=== PATIENT | female | born 1960 | race African-American/Black ===

== ENCOUNTER → 2017-11-07 | Outpatient (CLI) | payer BC ==
[~2017-11-07] MED LIST: ALLO100T PO; AMOX500T PO; AZIL40TA2 PO; BP PILL; CALC0.25 PO; CHOL5000 PO; COUM5TAB PO; CYAN1SUB SL; FISH1200 PO; MULTTAB67 PO; SPIR25TA PO; XARE20TA PO; [UNRECOGNIZED DRUG - CODE]
[2017-11-07 13:01] LABS: AUTOMATED NEUTROPHIL # 2.6 TH/MM3 (1.8-7.7); BASOPHIL % 0.8 % (0.0-2.0); EOSINOPHIL # 0.1 TH/MM3 (0-0.4); EOSINOPHIL % 2.3 % (0.0-4.0); HEMATOCRIT 37.6 % (35.0-46.0); HEMOGLOBIN 12.6 GM/DL (11.6-15.3); LYMPH % 26.5 % (9.0-44.0); LYMPHOCYTE # 1.2 TH/MM3 (1.0-4.8); MEAN CELL VOLUME 90.1 FL (80.0-100.0); MEAN CORPUSCULAR HEMOGLOBIN 30.2 PG (27.0-34.0); MEAN CORPUSCULAR HGB CONC 33.5 % (32.0-36.0); MEAN PLATELET VOLUME 9.4 FL (7.0-11.0); MONO % 12.3 % (0.0-8.0); MONOCYTE # 0.5 TH/MM3 (0-0.9); NEUT % 58.1 % (16.0-70.0); PLATELET COUNT 186 TH/MM3 (150-450); RED BLOOD COUNT 4.18 MIL/MM3 (4.00-5.30); RED CELL DISTRIBUTION WIDTH 14.7 % (11.6-17.2); WHITE BLOOD COUNT 4.5 TH/MM3 (4.0-11.0)
--- NOTE | 2017-11-07 13:07 | RADRPT ---
EXAM DATE/TIME: 11/07/2017 12:55 [place] COMPARISON: No previous studies available for comparison. INDICATIONS : Evaluate for pneumonia, pneumothorax, or communicable disease. Pre op for hysterectomy. MEDICAL HISTORY : Atrial fibrillation. SURGICAL HISTORY : None. ENCOUNTER: Initial ACUITY: 1 day PAIN SCORE: 0/10 LOCATION: Bilateral chest FINDINGS: The heart is enlarged. There is no overt congestive failure. The lungs are clear. The bony structures are grossly intact. CONCLUSION: 1. Mild cardiomegaly. No overt congestive failure. Rahul Messina MD on November 07, 2017 at 13:05 Board Certified Radiologist. This report was verified electronically.
[2017-11-07 13:09] LABS: INTERNATIONAL NORMALIZED RATIO 1.3 RATIO
[2017-11-07 13:24] LABS: BICARBONATE 31.1 MEQ/L (21.0-32.0); BLOOD UREA NITROGEN 30 MG/DL (7-18); CALCIUM 10.2 MG/DL (8.5-10.1); CHLORIDE 107 MEQ/L (98-107); CREATININE 1.52 MG/DL (0.50-1.00); GLOMERULAR FILTRATION RATE 43 ML/MIN (>89); GLUCOSE,FASTING 87 MG/DL (74-99); SODIUM (NA) 143 MEQ/L (136-145)
[2017-11-07 13:25] LABS: ALT (GPT) 18 U/L (10-53); AST (GOT) 17 U/L (15-37)
[2017-11-07 13:28] LABS: ALKALINE PHOSPHATASE 64 U/L (45-117); TOTAL BILIRUBIN ADULT 0.7 MG/DL (0.2-1.0); TOTAL PROTEIN 7.7 GM/DL (6.4-8.2)
--- NOTE | 2017-11-08 15:39 | EKG ---
Date Performed: 11/07/2017 Time Performed: 12:00:00 PTAGE: 57 years EKG: ATRIAL FIBRILLATION ST DEVIATION AND MODERATE T-WAVE ABNORMALITY, CONSIDER LATERAL ISCHEMIA ST DEVIATION AND MODERATE T-WAVE ABNORMALITY, CONSIDER INFERIOR ISCHEMIA ABNORMAL ECG Compared to PREVIOUS TRACING , patient no longer has criteria for a left ventricular hypertrophy. The re has been a marked improvement of the ST-T wave changes and essentially resolution of the previous denoted marked ST segment depression. Clinical correlation will be important to assess the serial levon nge. PREVIOUS TRACIN08/27/2003 17.38 DOCTOR: Lor Fisher Interpretating Date/Time 11/08/2017 15:39:47
== END ==
LOC: CPRE 11:31
PROVIDERS: ATTEND Obstetrics & Gynecology Gynecologic Oncology
DX: Z01.810 Encounter for preprocedural cardiovascular examination (principal); Z01.812 Encounter for preprocedural laboratory examination; Z01.818 Encounter for other preprocedural examination; R19.09 Other intra-abdominal and pelvic swelling, mass and lump
CPT/HCPCS: 36415; 71046; 80053; 85025; 85610; 85730; 86304; 93005

== ENCOUNTER 2017-11-25 05:09 | Observation (INO) | payer BC ==
[2017-11-25] VITALS (9 sets, daily range): BP systolic 113–127; BP diastolic 71–81; PULSE 66–92; RESP 16–20; TEMP 97.5–98; O2SAT 96–98
[~2017-11-25] VITALS: Ht 170.2 cm; Wt 98.8 kg
[~2017-11-25 05:09] MED LIST changes: -AMOX500T PO; -BP PILL; -COUM5TAB PO; -[UNRECOGNIZED DRUG - CODE]
[2017-11-25] MEDS ORDERED: CHLORHEXIDINE GLUCONATE 2 % 1 PACK (2 CLOTHS) TOPICAL PRN (05:45)
[2017-11-25] MEDS ORDERED: ceFAZolin 2 GM PREMIX 50 ML IV SCH (05:45)
[2017-11-25] MEDS ORDERED: METOPROLOL TARTRATE 25 MG TAB PO PRN (05:45)
[2017-11-25] MEDS ORDERED: LACTATED RINGER'S 1000 ML IV PRN (05:45)
[2017-11-25] MEDS ORDERED: SODIUM CHLORID 0.9% 500 ML IV PRN (05:45)
[2017-11-25] MEDS ORDERED: POVIDONE IODINE 5% (ANTISEPSIS KIT) 4 APPLICATIONS EACH NARE PRN (05:45)
[2017-11-25] MEDS ORDERED: ACETAMINOPHEN 1000 MG/100 ML 100 ML IV ONE (07:20)
[2017-11-25] MEDS ORDERED: HEPARIN SODIUM - SQ 10,000 UNITS/ML VIAL SQ SCH (08:00)
[2017-11-25] MEDS ORDERED: LIDOCAINE 1%/EPINEPHrine 1:100,000 SOLN 20 ML VIAL INFIL ONE (10:30)
[2017-11-25] MEDS ORDERED: METHYLENE BLUE 10 MG/ML VIAL OTHER ONE (10:34)
[2017-11-25] MEDS ORDERED: ceFAZolin INJ 1,000 MG VIAL IV ONE ×2 (11:19→12:00)
[2017-11-25] MEDS ORDERED: SODIUM CHLORIDE 0.9% FLUSH 10 ML FLUSH IV FLUSH PRN (11:45)
[2017-11-25] MEDS ORDERED: diphenhydrAMINE HCL 25 MG CAP PO PRN (11:45)
[2017-11-25] MEDS ORDERED: ONDANSETRON HCL 4 MG/2 ML VIAL IVP PRN (11:45)
[2017-11-25] MEDS ORDERED: oxyCODONE/ACETAMINOPHEN 5 MG/325 MG TAB PO PRN (11:45)
[2017-11-25] MEDS ORDERED: LABETALOL HCL 100 MG/20 ML VIAL IV ONE (12:00)
[2017-11-25] MEDS ORDERED: LIDOCAINE HCL 1% PF 5 ML SYRINGE OTHER ONE (12:00)
[2017-11-25] MEDS ORDERED: GLYCOPYRROLATE 1 MG/5 ML SYRINGE IV PUSH ONE (12:00)
[2017-11-25] MEDS ORDERED: ONDANSETRON HCL 4 MG/2 ML VIAL IV ONE (12:00)
[2017-11-25] MEDS ORDERED: VECURONIUM BROMIDE 20 MG VIAL IV ONE (12:00)
[2017-11-25] MEDS ORDERED: ROCURONIUM INJ 50 MG/5 ML SYRINGE IV PUSH ONE (12:00)
[2017-11-25] MEDS ORDERED: NEOSTIGMINE 5 MG/5 ML SYRINGE IV PUSH ONE (12:00)
[2017-11-25] MEDS ORDERED: PROPOFOL 200 MG/20 ML AMP IV ONE (12:00)
[2017-11-25] MEDS ORDERED: METOPROLOL TARTRATE 5 MG/5 ML VIAL IV ONE (12:00)
[2017-11-25] MEDS ORDERED: NORMOSOL R INJ 1,000 ML IV ONE (12:00)
[2017-11-25] MEDS ORDERED: ESMOLOL HCL 100 MG/10 ML VIAL IV ONE (12:00)
[2017-11-25] MEDS ORDERED: PHENYLEPH/NS 1000 MCG/10 ML SYR IV ONE (12:00)
[2017-11-25] MEDS ORDERED: SUGAMMADEX SODIUM 200 MG/2 ML VIAL IV PUSH ONE (12:00)
[2017-11-25] MEDS ORDERED: DO NOT ADM ANY ANTICOAGULANT DRUGS PRN (12:15)
[2017-11-25] MEDS: D5-1/2 NS + KCL 20 MEQ INJ 1,000 ML IV SCH ×2 (12:40→20:57)
[2017-11-25] MEDS ORDERED: *morphine SULFATE 4 MG/ML PERIprocedure ONLY ONE (13:01)
[2017-11-25 13:23] LABS: BICARBONATE 25.8 MEQ/L (21.0-32.0); CALCIUM 8.2 MG/DL (8.5-10.1); CREATININE 1.67 MG/DL (0.50-1.00)
[2017-11-25] MEDS ORDERED: *morphine SULFATE 8 MG/ML PERIprocedure ONLY ONE ×2 (13:31→14:46)
[2017-11-25] MEDS ORDERED: LORazepam 0.5 MG TAB PO PRN (14:00)
[2017-11-25] MEDS: KETOROLAC TROMETHAMINE 30 MG/ML (IVP) VIAL IVP SCH ×2 (14:50→20:07)
[2017-11-25] MEDS ORDERED: KETOROLAC TROMETHAMINE 30 MG/ML (IVP) VIAL IVP SCH (15:00)
--- NOTE | 2017-11-25 16:46 | PD.ONC.PN ---
Subjective Subjective Remarks post op note. pt resting in bed, no complaints denies pain denies nausea or vomiting explained frozen section appears to be benign Objective Data Date Time Temp Pulse Resp B/P (MAP) Pulse Ox O2 Delivery O2 Flow Rate FiO2 11/25/17 15:58 97.5 81 20 113/81 (92) 96 11/25/17 07:21 98.4 95 18 108/75 (86) 98 11/25/17 11/25/17 11/25/17 07:00 15:00 23:00 Intake Total 3000 ml Output Total 500 ml Balance 2500 ml Result Diagram: 11/25/17 1257 Laboratory Results Laboratory Tests Test 11/25/17 12:57 Blood Urea Nitrogen 25 MG/DL Creatinine 1.67 MG/DL Random Glucose 152 MG/DL Calcium Level 8.2 MG/DL Sodium Level 140 MEQ/L Potassium Level 4.2 MEQ/L Chloride Level 103 MEQ/L Carbon Dioxide Level 25.8 MEQ/L Anion Gap 11 MEQ/L Estimat Glomerular Filtration Rate 38 ML/MIN Magnesium Level 1.5 MG/DL Administered Medications Medications (Trade) Dose Ordered Sig/Reinaldo Route PRN Reason Start Time Stop Time Status Last Admin Dose Admin Lactated Ringer's 1,000 ml @ 30 mls/hr Q24H PRN IV SEE LABEL COMMENTS 11/25/17 05:45 11/28/17 05:44 11/25/17 07:30 Povidone Iodine (Betadine 5% Antisepsis Kit) 1 applic TEST BORER PRN EACH NARE SEE LABEL COMMENTS 11/25/17 05:45 11/28/17 05:44 11/25/17 07:30 Chlorhexidine Gluconate (Chlorhexidine 2% Cloth) 3 pack TEST BORER PRN TOPICAL SEE LABEL COMMENTS 11/25/17 05:45 11/28/17 05:44 11/25/17 07:30 Cefazolin Sodium/ Dextrose 50 ml @ 100 mls/hr TEST BORER IV 11/25/17 05:45 11/26/17 05:44 11/25/17 07:29 Heparin Sodium (Porcine) (Heparin Inj) 5,000 units TEST BORER SQ 11/25/17 08:00 11/26/17 07:59 11/25/17 07:29 Potassium Chloride/Dextrose/ Sod Cl 1,000 ml @ 100 mls/hr Q10H IV 11/25/17 14:00 11/25/17 12:40 Ketorolac Tromethamine (Toradol Inj) 30 mg Q6H IVP 11/25/17 14:00 11/26/17 08:01 11/25/17 14:50 Objective Remarks GENERAL: Well-nourished, well-developed patient. SKIN: Warm and dry. HEAD: Normocephalic. EYES: No scleral icterus. No injection or drainage. CARDIOVASCULAR: Regular rate and rhythm without murmurs. RESPIRATORY: Breath sounds equal bilaterally. No accessory muscle use. GASTROINTESTINAL: Abdomen soft, SS are c/d/i EXTREMITIES: No cyanosis, or edema. teds and scds MUSCULOSKELETAL: Adequate muscle tone. NEUROLOGICAL: No obvious focal deficit. Awake, alert, and oriented x3. PSYCHIATRIC: Appropriate mood and affect; insight and judgment normal. Assessment/Plan Problem List: (1) Post-operative state ICD Codes: Z98.890 - Other specified postprocedural states Status: Acute Plan: s/p RA lap hyst with BSO resection of pelvic mass post op orders in chart Toradol and Percocet for pain ADAT OOB to chair D/C kristie in am anticipate discharge home in next 24 hours Sue Burkett Nov 25, 2017 16:46
[2017-11-25] MEDS: SPIRONOLACTONE 25 MG TAB PO SCH (18:06)
[2017-11-25] MEDS: oxyCODONE/ACETAMINOPHEN 5 MG/325 MG TAB PO PRN (18:06)
--- NOTE | 2017-11-25 18:50 | MP ---
cc: Pamella Mckeon MD, Zachary S MD Sickinger, Barton G DO Brown, James W DATE OF OPERATION: 11/25/2017 PREOPERATIVE DIAGNOSES: 1. Postmenopausal bleeding. 2. Thickened endometrial stripe. 3. Enlarged uterus. 4. Complex adnexal mass. POSTOPERATIVE DIAGNOSES: 1. Postmenopausal bleeding. 2. Thickened endometrial stripe. 3. Enlarged uterus. 4. Complex adnexal mass. 5. Pelvic adhesions. PROCEDURE: Robotic-assisted laparoscopic hysterectomy, bilateral salpingo-oophorectomy, extensive lysis of pelvic adhesions. SURGEON: Pamella Mckeon MD SALVAGE INSPECTOR WOOD PARTS: Graciela martinosociology research assistant ANESTHESIA: General endotracheal. ESTIMATED BLOOD LOSS: 100 mL. URINE OUTPUT: 400 mL. INTRAVENOUS FLUIDS: 3000 mL. HISTORY: This is a 57-year-old female, postmenopausal bleeding led to imaging. Imaging showed the uterus to be enlarged at approximately 12-14 cm. The endometrial stripe was thickened. She had a biopsy that showed endometrial polyp. Also on the imaging, there was a 6 cm complex mass thought to be arising from and replacing the right ovary. There was no overt evidence of metastatic disease. She was counseled regarding these findings and consideration of surgery. She was seen again in the preop holding area, where the findings were reviewed, the steps recommended are discussed, questions were asked and answered, and she agreed, expressed good understanding and wished to move forward with surgery. FINDINGS: The uterine cavity sounds to 13 cm. The uterus is symmetrically enlarged, also with some lobular changes suggestive of leiomyomas, possibly adenomyosis. The left ovary appeared normal, although slightly prominent, white, solid, possibly a small fibroma. On the right ovary, there was an approximately 6-7 cm complex mass, most of which appears solid. Grossly, it is white, firm, suggestive of a fibroma. There is a smaller cystic component. The capsule is intact and remained intact through delivery of the specimen. In the peritoneal cavity, there are no peritoneal lymph glands. Liver, diaphragm edges are smooth. Omentum grossly appears normal. Large and small bowel and adjacent mesentery appear normal. There are some diverticulum without active diverticulitis. No overt retroperitoneal adenopathy. There are fairly dense adhesions in the pelvis. The ileocecal region is scarred down to the right pelvic sidewall overlying the right adnexa and proximal gonadal vessels. On the left side, the colon is adherent to the left pelvic sidewall, adherent to the adnexa and overlying the adnexa with some adhesions in the cul-de-sac. Frozen section analysis of the uterus shows there to be what appears to be benign endometrial polyps. The frozen section analysis of the right ovarian mass is suggestive of fibroma, but also mature cystic teratoma. There are no immature elements, no obvious malignant elements seen, although it is noted that it is an unusual mix to have a stromal growth like a fibroma mixed with a germ cell growth such as a mature teratoma. Nevertheless, no evidence of malignancy. STATEMENT OF COMPLEXITY/MODIFIER: Complexity was increased. A significant amount of time was spent lysing adhesions to gain safe access to the pelvis, restore normal anatomy, and accomplish surgical objectives. Additionally, the uterus is enlarged, although it is unknown if the weight exceeds 250 gm; nonetheless, the complexity of the case was increased. Modifier should be applied accordingly. PROCEDURE: She was taken to the operating room, placed in the dorsal lithotomy position after general endotracheal anesthesia was administered. Time-out was undertaken. She was identified by sight recognition, hospital ID ban, and the proposed procedure was reviewed and confirmed. She was carefully positioned in padded Rehan stirrups. Her arms were padded and secured to the sides. She was further secured to the operating table with egg crate padding and tape in a cross-chest, over the shoulder fashion. All sites noted to be properly aligned with no malalignments or pressure points. She was prepped and draped in sterile fashion, placed in lithotomy position. The cervix was grasped, uterine cavity was sounded. Large V-Care manipulator inserted and secured in the usual fashion. Abad catheter placed in the bladder. She was returned to low lithotomy position. After Abad catheter had been placed, change of sterile gloves was undertaken, we completed draping in anticipation of laparoscopy and confirmed that an orogastric tube was in the stomach on suction. With manual elevation of the abdominal wall and direct laparoscopic visualization, 5 mm cannula introduced into the left upper quadrant in an atraumatic fashion. Carbon dioxide gas was insufflated and a 12 mm cannula placed in the midline above the umbilicus, 8 mm cannula was placed in the right upper quadrant, left lateral quadrant. The original 5 mm cannula exchanged for an 8 mm cannula. She was placed in Trendelenburg position. Peritoneal washings were obtained for cytology. Anatomy was surveyed with findings as described above. Small bowel was followed back on its mesenteric root and 3 Ray-Chloe sponges were placed around the root of the small bowel mesentery. Robotic store administrative assistant brought into the operative field, attached in the usual fashion. Monopolar scissors, fenestrated bipolar forceps, and ProGrasp manipulators placed in arms #1, 2, and 3 respectively and I took my place at the surgeon's console. Lysis of adhesions was initiated on the right side where sharp dissection was used to mobilize the ileocecal region from the overlying attachments to the adnexa and right pelvic sidewall. Sharp dissection was continued until the ileocecum was mobilized up above the pelvic brim, allowing access to the right pelvic structures. The right round ligament was isolated, cauterized, and transected. The anterior and posterior leafs of the broad ligament were opened. Retroperitoneal dissection was carried out. The right ureter was identified. The right infundibulopelvic ligament was isolated and the intervening peritoneum was opened. The infundibulopelvic ligament was isolated to the level of the pelvic brim, where it was cauterized and transected. Posterior peritoneum opened along the right side of the uterus and cervix and the right vesicouterine peritoneum was dissected off the lower uterine segment and cervix. The right uterine vessels were skeletonized and cauterized. Additional attachments of the right ovarian mass were taken down with sharp dissection and cautery until it was isolated but left attached to the uterus by the utero-ovarian ligament. Attention was directed toward the left side. Lysis of adhesions was carried out to mobilize the colon to remove it from its fixation against the left pelvic sidewall and to gain access to visualize the adnexa and gonadal structures. Dissection was carried out lateral to and parallel to the colon to mobilize the colon and then medial adhesions were taken down with sharp dissection. Cul-de-sac adhesions were taken down with sharp dissection. Left round ligament isolated, cauterized, transected. The anterior and posterior leafs of the broad ligament were opened. The left ureter was identified. The left infundibulopelvic ligament was isolated and the intervening peritoneum was opened. The left infundibulopelvic ligament was isolated to the level of the pelvic brim, where it was thoroughly cauterized and transected. The posterior peritoneum was opened along the left side of the uterus and cervix and the left vesicouterine peritoneum dissected off the lower uterine segment and cervix. The left uterine vessels were skeletonized and cauterized. Inspection confirmed that the uterus was blanching now that all of the major blood supply had been secured. Now the left uterine vessels were transected. The cardinal, paracervical, and uterosacral ligaments were isolated, cauterized, and transected in stepwise fashion, freeing the attachments along the left side of the uterus and cervix. Attention was directed toward the right side, where the right uterine vessels were now transected. The cardinal, paracervical, and uterosacral ligaments were isolated, cauterized, and transected, thereby freeing the attachment along the right side of the uterus and cervix. Circumferential colpotomy was performed, the cervix from the upper vagina and due to the large specimen relative to the pelvic outlet, I left the surgeon's console to help deliver the specimen from the perineal approach. With countertraction, multiple tenaculums, repositioning, rotating, I was able to deliver the specimen. First, the uterus, cervix with left tube and ovary were delivered. The right utero-ovarian ligament was grasped and then the solid capsule of the right mass was grasped with countertraction and able to be delivered. Now the specimen was completely out and included uterus, cervix, both tubes and ovaries still attached to the uterus. Capsule of ovaries intact. A pneumo-occluder balloon was placed in the vagina to maintain pneumoperitoneum. I returned to the surgeon's console. Instruments 1 and 3 exchanged for needle drivers and 0 Vicryl suture was introduced. Vaginal cuff was closed starting at the left corner with full thickness closure including the posterior peritoneum and edge of the uterosacral ligaments were incorporated, tied via instrument tie. The suture was held on countertraction as a running continuous closure was carried approximately one-third [address] the way across the vaginal apex. Now, attention was directed to the right corner, where similarly right vaginal apex was secured, full thickness closure including the posterior edge of the peritoneum, uterosacral ligament, running closure for several centimeters was continued and tied via instrument tie. The needle was cut and removed. A second needle was introduced. The vaginal cuff closure which started now to close the middle one-third of the vaginal cuff. This suture was tied securely after full thickness pass to the vaginal wall and then tied securely to the initial suture that had closed and secured the left corner. Now, countertraction was held on the running closure to close the middle portion of the vaginal cuff and it was then tied securely. The needle was cut and removed. Pelvis was thoroughly irrigated. The bladder integrity was confirmed by filling the bladder with saline dyed with methylene blue. The bladder distended nicely under pressure. There was no blue dye, no extravasation of dye, there was a good margin between the vaginal cuff suture line and the edge of the bladder, good peristalsis of ureters bilaterally, and the bladder was drained. To assist in continued hemostasis, hemostatic Surgicel powder was placed in the left pelvic sidewall and across the vaginal cuff. Pathology came back showing no evidence of malignancy, so it was felt that all reasonable surgical objectives had been completed. Robotic instruments were removed. The robotic store administrative assistant was disengaged from the operative field. I reentered the bedside under sterile condition. Each of the 3 Ray-Chloe sponges that had been placed were removed laparoscopically through the 12 mm cannula. Each were inspected and noted to be removed in their entirety. There were no remaining foreign objects in the peritoneal cavity. All sites were hemostatic. The 12 mm fascial defect was closed with interrupted 0 Vicryl suture using a 0 Vicryl needle pass fascia closure apparatus tied securely. This rendered the fascia completely airtight and hemostatic. The remaining cannulas were withdrawn. Carbon dioxide gas was removed from the peritoneal cavity. Vicryl 3-0 subcutaneous, 3-0 Vicryl subcuticular, and Steri-Strips were used to close these incisions. She was returned to dorsal lithotomy position. Pelvic exam confirmed the vaginal cuff was well supported and hemostatic. There were no vaginal lacerations, no remaining foreign objects in the vagina. Final counts were correct. She was returned to dorsal supine position and was pending reversal of anesthesia when I left the operating room to precede her to the postanesthesia care unit. MD KINA Santana/ROGERIO , 04:09 PM , 06:48 PM
[2017-11-25] MEDS: SODIUM CHLORIDE 0.9% FLUSH 10 ML FLUSH IV FLUSH SCH (20:07)
[2017-11-26 00:02] VITALS: PULSE 85
[2017-11-26] MEDS: KETOROLAC TROMETHAMINE 30 MG/ML (IVP) VIAL IVP SCH (03:22)
[2017-11-26 03:44] VITALS: BP 133/75; PULSE 81; RESP 16; TEMP 97.9; O2SAT 97
[2017-11-26 06:33] LABS: AUTOMATED NEUTROPHIL # 5.9 TH/MM3 (1.8-7.7); BASOPHIL % 0.2 % (0.0-2.0); EOSINOPHIL % 0.5 % (0.0-4.0); HEMATOCRIT 35.3 % (35.0-46.0); HEMOGLOBIN 11.9 GM/DL (11.6-15.3); LYMPH % 6.9 % (9.0-44.0); LYMPHOCYTE # 0.5 TH/MM3 (1.0-4.8); MEAN CELL VOLUME 89.9 FL (80.0-100.0); MEAN CORPUSCULAR HEMOGLOBIN 30.4 PG (27.0-34.0); MEAN CORPUSCULAR HGB CONC 33.8 % (32.0-36.0); MEAN PLATELET VOLUME 8.6 FL (7.0-11.0); MONO % 8.3 % (0.0-8.0); MONOCYTE # 0.6 TH/MM3 (0-0.9); NEUT % 84.1 % (16.0-70.0); PLATELET COUNT 159 TH/MM3 (150-450); RED BLOOD COUNT 3.92 MIL/MM3 (4.00-5.30)
[2017-11-26 06:54] LABS: BICARBONATE 27.5 MEQ/L (21.0-32.0); CALCIUM 7.9 MG/DL (8.5-10.1); CREATININE 1.66 MG/DL (0.50-1.00)
[2017-11-26] MEDS: D5-1/2 NS + KCL 20 MEQ INJ 1,000 ML IV SCH (06:57)
[2017-11-26] MEDS ORDERED: OXYC1TAB63 PO (07:39)
[2017-11-26 08:00] VITALS: BP 114/72; PULSE 101; PULSE 91; RESP 18; TEMP 97.6; O2SAT 97
[2017-11-26 09:00] VITALS: PULSE 94
[2017-11-26] MEDS: SODIUM CHLORIDE 0.9% FLUSH 10 ML FLUSH IV FLUSH SCH (09:00)
[2017-11-26] MEDS ORDERED: EDARBYCLOR PO SCH (09:00)
[2017-11-26] MEDS ORDERED: ALLOPURINOL 100 MG TAB PO SCH (09:00)
[2017-11-26] MEDS: SPIRONOLACTONE 25 MG TAB PO SCH (09:30)
[2017-11-26] MEDS: oxyCODONE/ACETAMINOPHEN 5 MG/325 MG TAB PO PRN ×2 (09:30→13:27)
[2017-11-26 10:00] VITALS: PULSE 86
--- NOTE | 2017-11-26 23:28 | MD ---
cc: Pamella Mckeon MD,Darrell Cristobal,Sonny Hobson,Karthik Pereyra MD DATE OF DISCHARGE: 11/26/2017 PROCEDURE: On 11/25/2017, robotic-assisted laparoscopic hysterectomy, bilateral salpingo-oophorectomy, lysis of adhesions. DIAGNOSES: Enlarged uterus, thickened endometrial stripe, postmenopausal bleeding and complex right ovarian mass. HOSPITAL COURSE: She did well in the early postop period, remained hemodynamically stable, tolerated oral intake. Abad catheter removed, pending voiding. Ins and outs 3515/1250. Labs this morning: H and H 11.9 and 35.3. Electrolytes notable for a BUN and creatinine of 28 and 1.66, which is not significantly different from her baseline elevated creatinine. Potassium 4.4. PHYSICAL EXAMINATION: VITAL SIGNS: Afebrile, pulse 73-85, blood pressure 127-133/71-75, O2 saturations greater than or equal to 97%. GENERAL: Alert and oriented x3. No acute distress. LUNGS: Clear. Mild rales at the bases. CARDIOVASCULAR: Regular rate and rhythm. ABDOMEN: Soft. The incisions are clean and dry. 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 EXTREMITIES: Nontender. ASSESSMENT: Postoperative day #1. FINDINGS AT SURGERY, STEPS TAKEN AND PRELIMINARY PATHOLOGY: Reviewed. ACTIVITIES: Restrictions discussed. Questions were asked and answered. She expressed good understanding. PLAN: I anticipate she will meet criteria for discharge to home. She is to resume her prior medications. She is instructed to restart her Xarelto tomorrow or the following day to try to minimize risk of early postoperative bleeding related to medication. She will have a prescription for Percocet for pain. She can supplement that with [id number] medicine as approved by her other care providers. Our office number is made available. She is to contact our office to ensure she has a followup in 2 weeks or call us between now and then should she have any questions or problems and she understands. MD KINA Santana/SHRUTI/vanda , 07:43 AM , 11:04 PM
== END 2017-11-26 14:00 | disposition home or self-care (01) ==
LOC: HSDC 05:09 → HSDI 11:44 → HCIN 15:29
PROVIDERS: ADMIT Obstetrics & Gynecology Gynecologic Oncology; ATTEND Obstetrics & Gynecology Gynecologic Oncology
DX: N95.0 Postmenopausal bleeding (principal); N85.2 Hypertrophy of uterus; N73.6 Female pelvic peritoneal adhesions (postinfective); D27.0 Benign neoplasm of right ovary; N84.0 Polyp of corpus uteri; N80.0 Endometriosis of uterus; I10 Essential (primary) hypertension; E78.5 Hyperlipidemia, unspecified; E66.9 Obesity, unspecified
CPT/HCPCS: 00840; 49329; 58554; 80048; 83735; 85025; 86850; 86900; 86901; 88112; 88307; 88311; 88331; 96365; 96366; G0378; J0131; J0690; J1644; J1885; J2270; J2370; J2405; J2710; J3010; J3480; J7120; S2900